=== PATIENT | female | born 1940 | race Caucasian/White ===

== ENCOUNTER 2018-02-02 11:51 | Outpatient (REF) | payer MEDICARE, MEDICAID, SELFPAY ==
[2018-02-02 21:11] LABS: TSH 2.58 uIU/mL (0.358-3.74)
== END 2018-02-02 12:11 ==
LOC: NCHCN 11:51
PROVIDERS: PCP Internal Medicine; Visit Provider Internal Medicine
DX: E03.9 Hypothyroidism, unspecified (principal)
CPT/HCPCS: 84443

== ENCOUNTER 2019-01-09 12:41 | Outpatient (REF) | payer MEDICARE, MEDICAID, SELFPAY ==
[2019-01-09 19:13] LABS: ALT 87 U/L (14-59); AST 43 U/L (15-37); Albumin 3.5 g/dL (3.4-5.0); Alkaline Phosphatase 58 U/L (46-116); Anion Gap 10.6 mmol/L (3-11); BUN 14 mg/dL (7-18); Bilirubin, Total 1.3 mg/dL (0.2-1.0); CO2 25.4 mmol/L (21.0-32.0); Calcium 8.6 mg/dL (8.5-10.1); Chloride 101 mmol/L (98-107); Glucose 88 mg/dL (70-100); Potassium 4.2 mmol/L (3.5-5.1); Sodium 137 mmol/L (136-145); Total Protein 6.8 g/dL (6.4-8.2)
[2019-01-09 19:24] LABS: Amylase 51 U/L (25-115)
== END 2019-01-09 13:01 ==
LOC: NCHCN 12:41
PROVIDERS: PCP Internal Medicine; Visit Provider Internal Medicine
DX: R11.2 Nausea with vomiting, unspecified (principal)
CPT/HCPCS: 80053; 82150

== ENCOUNTER 2019-01-13 14:38 | Outpatient (REF) | payer MEDICARE, MEDICAID, SELFPAY ==
[2019-01-13 20:10] LABS: HCT 38.8 % (36.0-46.0); HGB 12.9 g/dL (12.0-15.5); Iron 43 ug/dL (50-175); Mean Corp. HGB Concentration 33.2 g/dL (32.0-36.0); Mean Corpuscular Hemoglobin 31.9 pg (27.0-33.0); Mean Platelet Volume 12.9 fL (8.0-11.0); Platelet Count 319 x1000/uL (130-400); RBC 4.04 m/cumm (4.00-5.20); RBC Distribution Width 13.1 % (11.7-14.6); Total Iron Binding Capacity 316 ug/dL (250-450); Transferrin Sat 14 % (15-50); White Blood Cell Count 7.43 k/cumm (4.4-10.8)
[2019-01-13 20:24] LABS: ALT 57 U/L (14-59); AST 28 U/L (15-37); Albumin 3.6 g/dL (3.4-5.0); Alkaline Phosphatase 54 U/L (46-116); Bilirubin, Direct 0.19 mg/dL (0.00-0.20); Bilirubin, Total 0.9 mg/dL (0.2-1.0); Total Protein 6.9 g/dL (6.4-8.2)
[2019-01-16 11:02] LABS: IgG 938 mg/dL (610-1616)
[2019-01-16 11:34] LABS: Hepatitis C Ab w Rflx HCV PCR Negative (NEGAT)
[2019-01-17 14:21] LABS: ANA Interpretation Positive (NEGAT); ANA Titer Pattern 1:80 Nucleolar
[2019-01-17 15:35] LABS: Smooth Muscle Ab Screen Negative (Negative)
[2019-01-17 20:25] LABS: Mitochondrial Ab, M2 <0.1 U
== END 2019-01-13 14:58 ==
LOC: NCHCN 14:38
PROVIDERS: PCP Internal Medicine; Visit Provider Internal Medicine
DX: K75.9 Inflammatory liver disease, unspecified (principal); R11.2 Nausea with vomiting, unspecified; E03.9 Hypothyroidism, unspecified
CPT/HCPCS: 80076; 82784; 83516; 85027; 86803; 83540; 83550; 84443; 86038; 86255

== ENCOUNTER 2019-06-08 14:42 | Outpatient (REF) | payer MEDICARE, MEDICAID, SELFPAY ==
[2019-06-08 19:22] LABS: D-Dimer 658 ng/mlFEU (<500)
== END 2019-06-08 15:02 ==
LOC: NCHCN 14:42
PROVIDERS: PCP Internal Medicine; Visit Provider Internal Medicine
DX: I80.00 Phlebitis and thrombophlebitis of superficial vessels of unspecified lower extremity (principal); F41.0 Panic disorder [episodic paroxysmal anxiety]
CPT/HCPCS: 85379

== ENCOUNTER 2019-12-18 15:07 | Outpatient (REF) | payer MEDICARE, MEDICAID, SELFPAY ==
[2019-12-18 19:10] LABS: HCT 44.8 % (36.0-46.0); HGB 14.4 g/dL (11.2-15.7); MCH 31.6 pg (27.0-33.0); MCHC 32.1 % (32.0-36.0); MCV 98.5 fL (80-95); MPV 12.7 fL (8.0-11.0); Platelet Count 291 10^3/uL (130-400); RBC 4.55 10^6/uL (3.93-5.22); RDW 12.6 % (11.7-14.6); RDW-SD 45.6 fL; WBC 7.97 10^3/uL (4.4-10.8)
[2019-12-18 19:39] LABS: Anion Gap 6.5 mmol/L (3-11); BUN 10 mg/dL (7-18); CO2 28.5 mmol/L (21.0-32.0); CREATININE 0.71 mg/dL (0.55-1.02); Calcium 9.2 mg/dL (8.5-10.1); Chloride 101 mmol/L (98-107); FREE T4 1.08 ng/dL (0.76-1.46); Glucose 106 mg/dL (74-106); Potassium 4.1 mmol/L (3.5-5.1); Sodium 136 mmol/L (136-145); TSH 2.75 uIU/mL (0.36-3.74)
== END 2019-12-18 15:27 ==
LOC: NCHCN 15:07
PROVIDERS: PCP Internal Medicine; Visit Provider Internal Medicine
DX: F41.0 Panic disorder [episodic paroxysmal anxiety] (principal); R03.0 Elevated blood-pressure reading, without diagnosis of hypertension; F45.8 Other somatoform disorders
CPT/HCPCS: 80048; 85027; 84439; 84443

== ENCOUNTER 2020-08-22 17:28 | Outpatient (REF) | payer MEDICARE, MEDICAID, SELFPAY ==
[2020-08-22 16:42] LABS: FREE T4 1.06 ng/dL (0.76-1.46); TSH 2.09 uIU/mL (0.36-3.74)
== END 2020-08-22 17:29 | disposition home or self-care (01) ==
LOC: NCHCN 17:28
PROVIDERS: PCP Internal Medicine; Visit Provider Internal Medicine
DX: E03.9 Hypothyroidism, unspecified (principal)
CPT/HCPCS: 84439; 84443

== ENCOUNTER 2020-12-05 17:55 | Outpatient (REF) | payer MEDICARE, MEDICAID, SELFPAY ==
[2020-12-05 18:31] LABS: ESR 5 mm/hr (0-30); HCT 41.5 % (36.0-46.0); HGB 13.7 g/dL (11.2-15.7); MCH 31.7 pg (27.0-33.0); MCV 96.1 fL (80-95); MPV 12.8 fL (8.0-11.0); Platelet Count 283 10^3/uL (130-400); RBC 4.32 10^6/uL (3.93-5.22); RDW-SD 46.5 fL; WBC 7.07 10^3/uL (4.4-10.8)
[2020-12-05 19:19] LABS: ALT 25 U/L (14-59); AST 22 U/L (15-37); Albumin 4.1 g/dL (3.4-5.0); Alkaline Phosphatase 66 U/L (46-116); Anion Gap 8.1 mmol/L (3-11); BUN 13 mg/dL (7-18); Bilirubin, Total 0.8 mg/dL (0.2-1.0); CO2 27.9 mmol/L (21.0-32.0); CREATININE 0.7 mg/dL (0.55-1.02); Calcium 9.1 mg/dL (8.5-10.1); Chloride 102 mmol/L (98-107); Glucose 102 mg/dL (74-106); Potassium 4.2 mmol/L (3.5-5.1); Sodium 138 mmol/L (136-145); Total Protein 7.3 g/dL (6.4-8.2)
== END 2020-12-05 17:56 | disposition home or self-care (01) ==
LOC: NCHCN 17:55
PROVIDERS: PCP Internal Medicine; Visit Provider Internal Medicine
DX: R63.4 Abnormal weight loss (principal); M95.2 Other acquired deformity of head
CPT/HCPCS: 80053; 85027; 85652

== ENCOUNTER 2021-08-25 13:01 | Outpatient (REF) | payer MEDICARE, MEDICAID, SELFPAY ==
[2021-08-25 22:14] LABS: HCT 39.2 % (36.0-46.0); HGB 12.8 g/dL (11.2-15.7); MCH 31.4 pg (27.0-33.0); MCHC 32.7 % (32.0-36.0); MCV 96.1 fL (80-95); MPV 12.8 fL (8.0-11.0); Platelet Count 278 10^3/uL (130-400); RBC 4.08 10^6/uL (3.93-5.22); RDW-SD 46.5 fL; WBC 7.17 10^3/uL (4.4-10.8)
[2021-08-25 22:56] LABS: ALT 23 U/L (14-59); AST 21 U/L (15-37); Albumin 3.7 g/dL (3.4-5.0); Alkaline Phosphatase 62 U/L (46-116); Anion Gap 10.8 mmol/L (3-11); BUN 16 mg/dL (7-18); Bilirubin, Total 0.9 mg/dL (0.2-1.0); CO2 22.2 mmol/L (21.0-32.0); CREATININE 0.6 mg/dL (0.55-1.02); Calcium 8.7 mg/dL (8.5-10.1); Chloride 102 mmol/L (98-107); FREE T4 0.95 ng/dL (0.76-1.46); Glucose 115 mg/dL (74-106); Potassium 4.4 mmol/L (3.5-5.1); Sodium 135 mmol/L (136-145); TSH 2.79 uIU/mL (0.36-3.74); Total Protein 6.8 g/dL (6.4-8.2)
== END 2021-08-25 13:02 | disposition home or self-care (01) ==
LOC: NCHCN 13:01
PROVIDERS: PCP Internal Medicine; Visit Provider Internal Medicine
DX: F41.0 Panic disorder [episodic paroxysmal anxiety] (principal); R42 Dizziness and giddiness; I83.93 Asymptomatic varicose veins of bilateral lower extremities
CPT/HCPCS: 80053; 85027; 84439; 84443

== ENCOUNTER 2024-01-19 00:55 | Outpatient (CLI) | payer MEDICARE, MEDICAID, SELFPAY ==
--- NOTE | 2024-01-19 08:17 | DI.RAD_ITS ---
Exam(s) XR FOOT RT COMPLETE EXAM: XR FOOT RT COMPLETE CLINICAL HISTORY: Right foot pain,m79.671. TECHNIQUE: 2D digital imaging was performed of the right foot. Three images were obtained. AP, obl ique and lateral views were obtained. COMPARISON: No exams were available for comparison FINDINGS: BONES: No acute fracture is present. No bony destructive lesion is seen. There is overlapping of the 4th and 5th toes. JOINTS: No dislocation present. The joint spaces are well maintained. SOFT TISSUE: Vascular calcifications are present. IMPRESSION: No acute abnormality. DATA REPOSITORY: RADIATION DOSE DELIVERED:
== END 2024-01-19 01:15 ==
LOC: DI 00:59
PROVIDERS: PCP Internal Medicine; Visit Provider Podiatrist
DX: M79.671 Pain in right foot (principal)
CPT/HCPCS: 17110; 20550; 73630

== ENCOUNTER → 2024-02-29 08:21 | Outpatient (BNVA) | payer MEDICARE, MEDICAID, SELFPAY | PROVIDERS: PCP Internal Medicine; Referring Provider Internal Medicine; Visit Provider Podiatrist | DX: M72.2 Plantar fascial fibromatosis (principal); M67.01 Short Achilles tendon (acquired), right ankle; B07.0 Plantar wart; M79.671 Pain in right foot; M79.672 Pain in left foot | CPT/HCPCS: 17110; 99213 ==

== ENCOUNTER → 2024-04-04 08:48 | Outpatient (BNVA) | payer MEDICARE, MEDICAID, SELFPAY | PROVIDERS: PCP Internal Medicine; Referring Provider Internal Medicine; Visit Provider Podiatrist | DX: M72.2 Plantar fascial fibromatosis (principal); M67.01 Short Achilles tendon (acquired), right ankle; B07.0 Plantar wart; M79.671 Pain in right foot; M79.672 Pain in left foot | CPT/HCPCS: 99213 ==

== ENCOUNTER → 2024-10-17 09:17 | Outpatient (BNVA) | payer MEDICARE, MEDICAID, SELFPAY | PROVIDERS: PCP Internal Medicine; Referring Provider Internal Medicine; Visit Provider Podiatrist | DX: M79.672 Pain in left foot (principal); G62.9 Polyneuropathy, unspecified; M21.622 Bunionette of left foot | CPT/HCPCS: 99213 ==

== ENCOUNTER → 2024-12-12 13:09 | Outpatient (BNVA) | payer MEDICARE, MEDICAID, SELFPAY | PROVIDERS: PCP Internal Medicine; Referring Provider Internal Medicine; Visit Provider Podiatrist | DX: G62.9 Polyneuropathy, unspecified (principal); M79.672 Pain in left foot; M21.622 Bunionette of left foot; B07.0 Plantar wart | CPT/HCPCS: J1100; J0702; 17110; 20600 ==

== ENCOUNTER → 2025-01-10 09:52 | Outpatient (BNVA) | payer MEDICARE, MEDICAID, SELFPAY | PROVIDERS: PCP Internal Medicine; Referring Provider Internal Medicine; Visit Provider Podiatrist | DX: M79.672 Pain in left foot (principal); M79.662 Pain in left lower leg; M21.622 Bunionette of left foot; G62.9 Polyneuropathy, unspecified; B07.0 Plantar wart | CPT/HCPCS: 99213 ==

== ENCOUNTER 2025-01-11 13:33 | Outpatient (CLI) | payer MEDICARE, MEDICAID, SELFPAY ==
--- NOTE | 2025-01-11 07:00 | DI.US_ITS ---
Exam(s) US LOWER EXTREMITY VENOUS LT EXAM: US LOWER EXTREMITY VENOUS LT CLINICAL HISTORY: Calf pain, swelling,DVT,M79.662 TECHNIQUE: Left lower extremity venous ultrasound performed using grayscale, color-flow, and spectral Doppler analysis. COMPARISON: No exams were available for comparison FINDINGS: The left common femoral, femoral and popliteal veins demonstrate normal compressibility, augmentation, and color Doppler. The posterior tibial and peroneal veins are patent. The saphenofemoral junction is unremarkable. There is a 2.2 cm length of nonocclusive thrombus in a superficial vein in the distal thigh. There is no evidence of a Jensen cyst. The soft tissues are unremarkable. IMPRESSION: 1. No evidence of a left lower extremity DVT. 2. 2.2 cm length of nonocclusive thrombus in a superficial vein in the distal thigh. DATA REPOSITORY:
== END 2025-01-11 13:53 ==
LOC: DI 13:34
PROVIDERS: PCP Internal Medicine; Visit Provider Podiatrist
DX: M79.662 Pain in left lower leg (principal); I82.462 Acute embolism and thrombosis of left calf muscular vein
CPT/HCPCS: 93971

== ENCOUNTER → 2025-03-14 10:24 | Outpatient (BNVA) | payer MEDICARE, MEDICAID, SELFPAY | PROVIDERS: PCP Internal Medicine; Referring Provider Internal Medicine; Visit Provider Podiatrist | DX: M79.672 Pain in left foot (principal); M21.622 Bunionette of left foot; M79.662 Pain in left lower leg; L84 Corns and callosities; B07.0 Plantar wart; G62.9 Polyneuropathy, unspecified | CPT/HCPCS: 99213 ==

== ENCOUNTER 2025-03-16 11:33 | Outpatient (CLI) | payer MEDICARE, MEDICAID, SELFPAY ==
--- NOTE | 2025-03-16 10:11 | DI.RAD_ITS ---
Exam(s) XR KNEE RT 4V AP,LAT,JOSEFA,PAT EXAM: XR KNEE RT 4V AP,LAT,JOSEFA,PAT CLINICAL HISTORY: right knee pain. TECHNIQUE: 2D digital imaging was performed of the right knee. Four views obtained. Merchant, AP, lateral and PA tunnel views were obtained. COMPARISON: No exams were available for comparison FINDINGS: BONES: No acute fracture is present. No bony destructive lesion is seen. There is an enthesophyte at the superior patella. JOINTS: The joint spaces are well maintained. There is mild spurring of the posterior patella. No joint effusion is seen. SOFT TISSUE: Normal. IMPRESSION: Minimal degenerative changes seen in the right knee. DATA REPOSITORY: RADIATION DOSE DELIVERED:
== END 2025-03-16 11:34 | disposition home or self-care (01) ==
LOC: DIORS 11:34
PROVIDERS: PCP Internal Medicine; Referring Provider Internal Medicine; Visit Provider Physician Assistant
DX: M70.51 Other bursitis of knee, right knee (principal); S89.91XA Unspecified injury of right lower leg, initial encounter; M25.551 Pain in right hip; M79.604 Pain in right leg; W19.XXXA Unspecified fall, initial encounter
CPT/HCPCS: 99213; 73564

== ENCOUNTER 2025-03-28 14:35 | Outpatient (CLI) | payer MEDICARE, MEDICAID, SELFPAY ==
--- NOTE | 2025-03-28 13:30 | DI.RAD_ITS ---
Exam(s) XR HIP RT COMPLETE AP PELVIS EXAM: XR HIP RT COMPLETE AP PELVIS CLINICAL HISTORY: RIGHT HIP PAIN. TECHNIQUE: 2D digital imaging was performed. Two views COMPARISON: No exams were available for comparison FINDINGS: BONES: No acute fracture is present. No bony destructive lesion is seen. JOINTS: No dislocation present. The hip joint spaces are maintained. There is mild acetabular spurring. Mild spurring at the inferior SI joints. SOFT TISSUE: Small chronic appearing calcification superior to the right greater trochanter. IMPRESSION: No acute abnormality. Mild degenerative changes of the hips. DATA REPOSITORY: RADIATION DOSE DELIVERED:
== END 2025-03-28 14:36 | disposition home or self-care (01) ==
LOC: DIORS 14:35
PROVIDERS: PCP Internal Medicine; Referring Provider Internal Medicine; Visit Provider Student in an Organized Health Care Education/Training Program
DX: S76.301A Unspecified injury of muscle, fascia and tendon of the posterior muscle group at thigh level, right thigh, initial encounter (principal); S80.01XA Contusion of right knee, initial encounter; M23.91 Unspecified internal derangement of right knee; W01.0XXA Fall on same level from slipping, tripping and stumbling without subsequent striking against object, initial encounter
CPT/HCPCS: 99214; 73502

== ENCOUNTER → 2025-04-19 00:38 | Outpatient (CLI) | payer MEDICARE, MEDICAID, SELFPAY ==
--- NOTE | 2025-04-19 07:00 | DI.RAD_ITS ---
Exam(s) RF JOINT INJ. FLUORO GUID RAD EXAM: RF JOINT INJ. FLUORO GUID RAD CLINICAL HISTORY: R HIP INJURY,arthritis rt hip,m16.11, fluoro guided injection. TECHNIQUE: 2D and realtime digital imaging was performed. CONTRAST MATERIAL: Oral barium Oral water soluble contrast was administered. COMPARISON: No exams were available for comparison FINDINGS: This fluoroscopic right hip steroid injection was performed at the request of the referring orthopedic surgeon. Patient was consented prior to this procedure. The patient was placed in the supine position on the fluoroscopy table. Using sterile technique and adequate skin-subcutaneous anesthesia, fluoroscopic guidance was used to advance a 22 gauge spinal needle into the hip joint via an anterior approach being careful to avoid the femoral artery. Intra-articular position was confirmed with injection of 2 cc Optiray 300. Thereafter a sterile solution 40 milligram Depo-Medrol and 3 cc of 0.25 percent bupivacaine was injected into the joint via the indwelling needle. The needle was then removed and a Band-Aid applied. The patient tolerated this procedure well and there were no intraprocedural complications. IMPRESSION: Successful right hip nor Skopic guided steroid injection. RADIATION DOSE DELIVERED: Ka,r=7.44mGy
[2025-04-19] MEDS: Lidocaine 1% Pres-Free 30 ML VIAL IJ (15:20)
[2025-04-19] MEDS: Bupivacaine 0.25% Pres-Free 10 ML VIAL IJ (15:21)
[2025-04-19] MEDS: Omnipaque 300 MG/ML 10 ML BTL IJ (15:23)
[2025-04-19] MEDS: methylPREDNISolone ACETATE 40 MG/ML VIAL IM (15:23)
== END ==
PROVIDERS: PCP Internal Medicine; Visit Provider Student in an Organized Health Care Education/Training Program
DX: M16.11 Unilateral primary osteoarthritis, right hip (principal)
CPT/HCPCS: 20610; 77002; J0665; J1010

== ENCOUNTER → 2025-04-24 00:23 | Outpatient (CLI) | payer MEDICARE, MEDICAID, SELFPAY ==
--- NOTE | 2025-04-24 07:15 | DI.MRI_ITS ---
Exam(s) MR LOWER JOINT RT WO EXAM: MR LOWER JOINT RT WO CLINICAL HISTORY: R KNEE PAIN,CONTUSION,INTERNAL DERANGEMENT,S80.01XA,M23.91 TECHNIQUE: Multiplanar multisequence MRI of the right knee was performed. COMPARISON: No exams were available for comparison FINDINGS: EFFUSION: There is a minimal amount of increased joint fluid. There is no large joint effusion. There is no Jensen cyst in the popliteal fossa although there is some intramuscular edema evident in the distal semimembranosus muscle in the distal posterior thigh as well as some increase intramuscular signal within the medial gastrocnemius-soleus muscle group. MARROW:There is no evidence of fracture, bone contusion, nor osteochondral defects.. There are no concerning osseous lesions. A small degenerative subarticular cyst is noted in the posterior tibial plateau subjacent to the PCL attachment site. PATELLOFEMORAL COMPARTMENT: The quadriceps tendon is intact. The patellar ligament is intact. There is moderate relatively uniform chondromalacia narrowing of the retropatellar cartilage, without evidence of an osteochondral defect nor intraosseous signal abnormality in the patella. There is some mild subcutaneous edema over the medial patella. No evidence of prepatellar bursitis.There is no intraosseous signal to suggest recent patellar dislocation. There are no patellar retinacular tears. CRUCIATE LIGAMENTS: The anterior cruciate ligament is intact.The posterior cruciate ligament is intact. MEDIAL COMPARTMENT/MEDIAL MENISCUS: There are no tears of the medial meniscus evident.. There is a small focus of fluid interposed between the outer aspect of the medial femoral condyle and the normal appearing MCL. This is doubtful to represent a degenerative meniscal cyst as the adjacent medial meniscus appears unremarkable. There is mild articular cartilage thinning over the inner aspect of the medial femoral condyle. There are no osteochondral defects. No subarticular bone edema in the medial compartment. There is a small osteophyte off the inner aspect of the medial condyle. MEDIAL COLLATERAL LIGAMENT: Intact LATERAL COMPARTMENT/LATERAL MENISCUS: There is mild increased signal at the level of the root of the posterior horn of the lateral meniscus but doubtful for a true tear at this level.. Some myxoid degeneration signal is noted in the anterior horn.There is minimal thinning of the articular cartilage over the lateral femoral condyle. No subarticular edema. No osteophytes. ILIOTIBIAL BAND: Intact LATERAL COLLATERAL LIGAMENT COMPLEX: The fibular collateral ligament is intact. The biceps femoris tendon is intact.Popliteus muscle and tendon are intact. IMPRESSION: 1. There is intramuscular signal abnormality in the posterior medial aspect of the knee involving the distal semimembranosus and medial gastrocnemius/soleus. This has appearance of mild muscle injury signal. There is no evidence of distinct intra nor intermuscular fluid collection to suggest hematoma. 2. No evidence of fracture or bone contusion. 3. There is relatively uniform thinning of the retropatellar cartilage. No osteochondral defect and no abnormal intraosseous signal in the patella. 4. There are no cruciate nor collateral ligament tears and the iliotibial band is intact. 5. Mild meniscal findings without evidence of an obvious meniscal tear. Only minimal degenerative changes in the medial lateral compartments. Minimal amount of increased joint fluid. No large joint effusion. DATA REPOSITORY:
== END ==
LOC: DI 00:23
PROVIDERS: PCP Internal Medicine; Visit Provider Student in an Organized Health Care Education/Training Program
DX: S80.01XA Contusion of right knee, initial encounter (principal); M23.91 Unspecified internal derangement of right knee; X58.XXXA Exposure to other specified factors, initial encounter
CPT/HCPCS: 73721

== ENCOUNTER → 2025-05-01 12:51 | Outpatient (BNVA) | payer MEDICARE, SELFPAY | PROVIDERS: PCP Internal Medicine; Referring Provider Internal Medicine; Visit Provider Student in an Organized Health Care Education/Training Program | DX: M17.11 Unilateral primary osteoarthritis, right knee (principal); M16.11 Unilateral primary osteoarthritis, right hip; S76.301A Unspecified injury of muscle, fascia and tendon of the posterior muscle group at thigh level, right thigh, initial encounter; X58.XXXA Exposure to other specified factors, initial encounter | CPT/HCPCS: 99213; 20610; J1010 ==